=== PATIENT | female | born 1945 | race Caucasian/White ===

== ENCOUNTER 2018-11-25 13:15 | Outpatient (CLI) | payer MEDICARE, OTHER | END 2018-11-25 13:16 | disposition home or self-care (01) | LOC: BICMAMMO 13:15 | PROVIDERS: ATTEND Family Medicine | DX: Z12.31 Encounter for screening mammogram for malignant neoplasm of breast (principal); R92.1 Mammographic calcification found on diagnostic imaging of breast; Z85.89 Personal history of malignant neoplasm of other organs and systems | CPT/HCPCS: 77063; 77067 ==

== ENCOUNTER 2019-06-23 15:36 | Observation (INO) | payer MEDICARE, OTHER ==
[2019-06-23 19:56] VITALS: BMI 40.8
[2019-06-23] MEDS ORDERED: Famotidine 20 MG TAB PO PRN (20:26)
[2019-06-23] MEDS ORDERED: Acetaminophen 325 MG TAB PO PRN (20:26)
[2019-06-23] MEDS ORDERED: Ondansetron ODT 4 MG TAB PO PRN (20:26)
--- NOTE | 2019-06-23 20:38 | PDOC.FPRHP ---
- History of Present Illness Chief Complaint: syncope History of Present Illness: Patient is a 74F with a PMHx of HTN, HLD, DM2, hypothyroidism that presents after 2 episodes of syncope earlier this morning. Patient reports that she was at the [facility] doing her laundry when twice she lost consciousness briefly, and awakened afterward on her buttocks. She denies head trauma. She denies feeling lightheaded or dizzy before each episode. She denies visual disturbances/blurry vision. She denies any cp or palpitations. Denies vomiting or diarrhea. Patient reports that this has happened to her 1-2x before, while she was at home. Per patient she has been evaluated in the past at the ED, diagnosed with dehydration and told to drink more water. She reports that her BG usually runs in the 200s-300s at home, and was recently started on insulin 3-4 weeks ago. She states that she has noticed that she has had polyuria, though denies dysuria or hematuria. ED Course: Received NS at outside ER before transfer - Allergies/Adverse Reactions Allergies Allergy/AdvReac Type Severity Reaction Status Date / Time No Known Drug Allergies Allergy Verified 06/23/19 20:22 - Home Medications Medication Instructions Recorded Confirmed Type Aspirin [Ecotrin Low Strength] 81 mg PO DAILY 06/23/19 06/23/19 History Cholecalciferol (Vitamin D3) 25 mg PO DAILY 06/23/19 06/23/19 History [Vitamin D] Insulin Glargine,Hum.Rec.Anlog 35 unit SC HS 06/23/19 06/23/19 History [Lantus Solostar] Levothyroxine [Synthroid] 112 mcg PO DAILY 06/23/19 06/23/19 History Lisinopril 10 mg PO DAILY 06/23/19 06/23/19 History Sertraline HCl 100 mg PO DAILY 06/23/19 06/23/19 History Simvastatin 40 mg PO QPM 06/23/19 06/23/19 History - History PMHx: HTN, HLD, DM2, hypothyroidism PSHx: hysterectomy FHx: non-contributory Social: denies etoh, smoking, drug use - Review of Systems General: denies: fever/chills, weight/appetite/sleep changes Eyes: denies: eye pain, vision changes ENT: denies: nasal congestion, rhinorrhea Respiratory: reports: cough. denies: shortness of breath Cardiovascular: denies: chest pain, palpitation Gastrointestinal: denies: nausea, vomiting, diarrhea Genitourinary: reports: polyuria. denies: incontinence, dysuria Skin: denies: rashes, lesions Musculoskeletal: denies: pain, tenderness Neurological: reports: syncope. denies: seizure Psychological: reports: other (mood swings). denies: anxiety, depression - Vital signs BP: [157/69] HR: [97] RR: [18] Tmax: [98F] Pox: [97]% on [RA] Wt: [121.7kg] - Physical Exam Constitutional: NAD, awake, alert and oriented HEENT: EOMI, no scleral icterus, grossly normal vision, grossly normal hearing Neck: supple, trachea midline Chest: no-tender to palpation, no lesions Heart: RRR, normal S1/S2, other (systolic murmur appreciated, +1 edema LE bilaterally) Lungs: CTAB, no respiratory distress Abdomen: soft, non-tender Musculoskeletal: normal structure, normal tone Neurological: no focal deficit, normal sensation Skin: no rash/lesions, other (poor turgor, delayed cap refill) Heme/Lymphatic: no unusual bruising or bleeding, no purpura Psychiatric: normal mood and affect, good judgment and insight FMR H&P: Results - Labs Result Diagrams: 06/24/19 04:27 06/24/19 04:26 FMR H&P: A/P - Problem List (1) Syncope and collapse Current Visit: Yes Status: Acute Code(s): R55 - SYNCOPE AND COLLAPSE (2) HTN (hypertension) Current Visit: Yes Status: Chronic Code(s): I10 - ESSENTIAL (PRIMARY) HYPERTENSION (3) DM2 (diabetes mellitus, type 2) Current Visit: Yes Status: Chronic (4) HLD (hyperlipidemia) Current Visit: Yes Status: Chronic Code(s): E78.5 - HYPERLIPIDEMIA, UNSPECIFIED (5) Hypothyroid Current Visit: Yes Status: Chronic Code(s): E03.9 - HYPOTHYROIDISM, UNSPECIFIED (6) Orthostatic hypotension Current Visit: Yes Status: Acute Code(s): I95.1 - ORTHOSTATIC HYPOTENSION (7) Lqfby-aw-nxkpftv kidney injury Current Visit: Yes Status: Acute Code(s): N17.9 - ACUTE KIDNEY FAILURE, UNSPECIFIED; N18.9 - CHRONIC KIDNEY DISEASE, UNSPECIFIED - Plan Patient is a 74F with PMHx of HTN, HLD, DM2, hypothyroidism presenting after syncope x2 today. #Syncope #Orthostatic Hypotension -patient had 2 episodes of syncope today -reports polyuria, BG in 200-300 range -orthostatic vitals confirmed -IVF -continue to monitor vitals -echo, new murmur appreciated today on exam #Acute on chronic kidney injury -creatinine 1.54, GFR 33 likely from dehydration -baseline creatinine ~1.0, GFR ~5 -IVF -continue to monitor #DM #hyperglycemia -recently started on insulin -BG 200-300 range usually at home per patient -ISS -continue home lantus, 30u qam #HLD -continue home meds #HTN -continue home meds Diet: CC DVT: lovenox Fluids: LR @ 160 Dispo: obs for IVF for orthostatic hypotension, f/u echo results Code: Full FMR H&P: Upper Level - Pertinent history 74 yo F here as transfer from [facility] where she presented with complaint of 2 episodes of passing out while doing laundry today. She states that she was standing up and an instant later she was on the ground. She denies prodromal symptoms such as palpitations, dizziness, or tunnel vision. She states that she has been urinating much more recently and has trouble controlling her glucose. In the outside ED her BG was 368. PMHx DM2 CKD3 HLD Hypothyroid MDD Surgical hx Hysterectomy Social Hx Denies tobacco, etoh or drugs - Pertinent findings See nutrition internship note for full ROS, PE, vitals, and labs ROS General denies fever or chills CV Complains of syncope. Denies CP, palpitation, or peripheral edema Resp Denies of SOB or cough GI Denies n/v/d or abdominal pain denies increased frequency or dysuria PE General A&O x4, NAD HEENT NCAT CV RRR, 3/6 systolic murmur R sternal border that does not radiate Resp CTA, no respiratory distress Abd non tender, no distension, normal BS Extremities no edema, equal pedal pulses Neuro No focal deficits, normal strength - Plan Date/Time: 06/23/192033 IJunior DO, have evaluated this patient and agree with findings/plan as outlined by nutrition internship resident. Pertinent changes/additions are listed here. 1.Syncope -Most likely related to dehydration secondary to hyperglycemia. Will bolus 1L and start maintenance IVF -Due to apparent new murmur with syncope, will order echo -Admit to tele obs 2.NELLY on CKD3 -IVF as above -Recheck BMP in am 3.Hyperglycemia in setting of previously controlled DM2 -Restart home lantus -Mod SSI with plan to convert to scheduled. -Most recent A1c was 7.9 in 03/2019 4.Abnormal UA -Given presence of squamous cells, it is likely that WBCs are of no consequence. Will send for culture and treat if indicated. See nutrition internship note for management of other chronic problems PPx SCD Diet Low carb diet Code Full Addendum - Attending - Attending Attestation Date/Time: 06/24/19 6191 I personally evaluated the patient and discussed the management with Dr. Lopez and Herb. I agree with the History, Examination, Assessment and Plan documented above with any addition or exceptions noted below.
[2019-06-23] MEDS ORDERED: Lactated Ringer's 1,000 ML IV SCH ×2 (20:45→22:30)
[2019-06-23] MEDS ORDERED: Dextrose 5% in Water 1,000 ML IV PRN (21:22)
[2019-06-23] MEDS ORDERED: Dextrose 50% Abboject 50 ML SYRINGE SLOW IVP PRN (21:22)
[2019-06-23] MEDS: Lactated Ringer's 1,000 ML IV SCH (21:33)
[2019-06-23] MEDS: HumaLOG 300 UNITS/3 ML VIAL SC PRN (21:45)
[2019-06-24] MEDS ORDERED: Insulin Glargine 30 UNITS in Pre-Filled Syringe 1 EACH SC SCH ×3 (04:45→21:00)
[2019-06-24 04:46] LABS: #Eosinphils 0.4 thou/uL (0.0-0.7); #Monocytes 0.8 thou/uL (0.11-0.59); #Neutrophils 5.7 thou/uL (1.40-6.50); %Basophils 0.5 % (0.0-1.0); %Eosinophils 4.8 % (0.0-10.0); %Lymphocytes 21.9 % (21.0-51.0); %Monocytes 8.5 % (0.0-10.0); %Neutrophils 64.3 % (42.0-75.0); Hemoglobin 11.3 g/dL (12.0-16.0); Mean Corpuscular HGB CONC 33.1 g/dL (32.0-36.0); Mean Corpuscular Hemoglobin 29.5 pg (27.0-31.0); Mean Corpuscular Volume 89.4 fL (78.0-98.0); Mean Platelet Volume 8.8 fL (7.4-10.4); Platelet Count 173 thou/uL (130-400); RBC Distribution Width 13.1 % (11.5-14.5); Red Blood Cell (RBC) Count 3.83 mill/uL (4.20-5.40); White Blood Cell (WBC) Count 8.9 thou/uL (4.8-10.8)
[2019-06-24 05:07] LABS: Anion Gap 8 mmol/L (10-20); BUN (Urea Nitrogen) 19 mg/dL (9.8-20.1); Calc. Creatinine Clearance 98 mL/min (70-130); Calcium 8.5 mg/dL (7.8-10.44); Carbon Dioxide 25 mmol/L (23-31); Chloride 108 mmol/L (98-107); Estimated GFR-MDRD 56; Glucose 203 mg/dL (83-110); Potassium 3.9 mmol/L (3.5-5.1); Sodium 137 mmol/L (136-145)
[2019-06-24] MEDS: Lactated Ringer's 1,000 ML IV SCH ×3 (05:28→17:34)
[2019-06-24] MEDS: Levothyroxine Sodium 112 MCG TAB PO SCH (05:32)
--- NOTE | 2019-06-24 07:16 | PDOC.FM ---
- Subjective Subjective: Patient reports she feel the same as yesterday but denies any lightheadedness upon standing. Also denies any additional syncopal episodes since admission. - Objective MAR Reviewed: Yes Vital Signs & Weight: Vital Signs (12 hours) Temp Pulse Resp BP BP BP Pulse Ox 06/24/19 04:00 97.3 F L 63 17 128/61 93 L 06/24/19 00:18 76 132/59 L 06/23/19 19:45 97.9 F 76 18 110/52 L 95 06/23/19 19:15 97.9 F 76 18 110/52 L 95 Weight Admit Weight 121.744 kg Weight 123 kg I&O: 06/23/19 06/24/19 06/25/19 06:59 06:59 06:59 Intake Total 2620 Output Total 1400 Balance 1220 Result Diagrams: 06/24/19 04:27 06/25/19 05:09 Phys Exam - Physical Examination Constitutional: NAD HEENT: moist MMs Neck: supple, full ROM Respiratory: no wheezing, no rales, no rhonchi, clear to auscultation bilateral Cardiovascular: RRR, no significant murmur Gastrointestinal: soft, non-tender Neurological: non-focal, moves all 4 limbs Psychiatric: normal affect, A&O x 3 Dx/Plan (1) Murmur, cardiac Code(s): R01.1 - CARDIAC MURMUR, UNSPECIFIED Status: Acute (2) Thnfw-gl-mijgmlk kidney injury Code(s): N17.9 - ACUTE KIDNEY FAILURE, UNSPECIFIED; N18.9 - CHRONIC KIDNEY DISEASE, UNSPECIFIED Status: Acute (3) Orthostatic hypotension Code(s): I95.1 - ORTHOSTATIC HYPOTENSION Status: Acute (4) Syncope and collapse Code(s): R55 - SYNCOPE AND COLLAPSE Status: Acute (5) DM2 (diabetes mellitus, type 2) Status: Chronic (6) HLD (hyperlipidemia) Code(s): E78.5 - HYPERLIPIDEMIA, UNSPECIFIED Status: Chronic (7) HTN (hypertension) Code(s): I10 - ESSENTIAL (PRIMARY) HYPERTENSION Status: Chronic (8) Hypothyroid Code(s): E03.9 - HYPOTHYROIDISM, UNSPECIFIED Status: Chronic - Plan Plan: Patient is a 74F with PMHx of HTN, HLD, DM2, hypothyroidism presenting after syncope x2 today. Syncope - Had 2 syncopal episodes on the date of admission. History suspicious for arrhythmia being the underlying cause. Will consult cardiology for opinion for further workup & whether or not this needs to be completed inpatient or outpatient. - Orthostats positive on admission. Patient recently started on insulin for DMII and BG levels have been elevated in the 200s with associated polyuria. Suspect likely 2/2 volume depletion from frequent urination. However, new murmur noted on PE on admission so will also obtain an ECHO to assess for any structural abnormalities that could explain her syncope. - Will wean IVFs & encourage increased PO hydration. - Will continue close monitoring on telemetry. Acute on chronic kidney injury - creatinine 0.97 & GFR 56 s/p IVFs overnight which appears to be in patient's baseline range per chart review - Will wean fluids today & encourage PO hydration IDDMII - BG 200-300 range usually at home per patient & up to 203 this AM - Continue home lantus, 30u qhs with SSI as well & titrate home dose PRN for improved glycemic control. HLD -continue home meds HTN -continue home meds Hypothyroidism -continue home meds Diet: CC DVT: lovenox Fluids: LR @ 160 Dispo: Possible d/c home later today pending cardiology recs. Code: Full Addendum - Attending - Attending Attestation Date/Time: 06/24/19 6000 I personally evaluated the patient and discussed the management with Dr. Rooney I agree with the History, Examination, Assessment and Plan documented above with any addition or exceptions noted below. 74 yo female with DM admitted for syncope and recurrent pre-sycopal episodes. HD#1 Patient reports she feels better from admission. States events occur without warning. Has been increasing in frequency over the past few months. VS, labs reviewed. Agree with PE as documented by resident. 1. Syncope: No aura or warning signs. Concern for cardiac origin. Occurs while ambulating. 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 Rule out HF. Rule out ischemia. Consult cards to discuss outpatient monitoring. Consider stress due to events occurring with ambulation. Positive for orthostasis. Continue IVF hydration. Will transition to PO today. Continue to monitor throughout the day. 2. Uncontrolled DM: Adjust home meds. Add metformin. Patient with financial issues due to poor med coverage. Not able to afford Lantus. 3. HTN: Adjust home meds. Patient not able to tolerate vasodilator due to orthostasis. 4. Orthostasis: Concern for autonomic dysfunction as well. Responded well to fluid hydration. No longer hypovolemic. Concern hypovolemia related to glucosuria and diuretic effect. Adjust home meds as needed. Follow up with cards for outpt eval. Monitor throughout the day. Possible home today if stable. Lesli
[2019-06-24] MEDS: Enoxaparin Sodium 40 MG/0.4 ML SYRINGE SC SCH (08:32)
[2019-06-24] MEDS: Lisinopril 10 MG TAB PO SCH (08:32)
[2019-06-24] MEDS ORDERED: Prevnar 13-Val Conj/PF 0.5 ML SYRINGE IM ONE (09:00)
[2019-06-24] MEDS ORDERED: Insulin Glargine 10 UNITS in Pre-Filled Syringe 1 EACH SC SCH (12:00)
[2019-06-24] MEDS: HumaLOG 300 UNITS/3 ML VIAL SC PRN ×3 (12:33→20:29)
[2019-06-24] MEDS ORDERED: Simvastatin 40 MG TAB PO SCH (21:00)
[2019-06-24] MEDS ORDERED: Non-Formulary Item 1 EACH (Insulin Glargine,Hum.Rec.Anlog [Lantus Solostar] 35 UNIT) SC SCH (21:00)
--- NOTE | 2019-06-25 00:11 | CON ---
DATE OF CONSULTATION: 06/24/2019 REASON FOR CONSULTATION: Syncope. HISTORY OF PRESENT ILLNESS: Riddhi Brooks is a 74-year-old woman. The patient has a history of diabetes. She said recently the blood sugars have been extremely high, usually well over 300. The patient has been placed on insulin, but the blood sugar has been very difficult to control. Yesterday she was at the [facility]. 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 Her friends helped her up to a sitting position. She sat for a few minutes, felt better, but when she stood up, the same thing happened again. She was brought here to the hospital. The patient was given intravenous fluid here. She was also found to have high levels of glucose in the urine. She has been hydrated since she has been here. No chest pain or pressure. The patient states she has had similar episodes in the past, but not as severe. MEDICATIONS: At home; 1. Lisinopril 10 mg each morning. 2. Simvastatin 40 mg a day. 3. Levothyroxine. 4. Aspirin 81 mg a day. 5. Insulin. REVIEW OF SYSTEMS: CONSTITUTIONAL: No significant weight gain or loss. HEENT: Vision, no changes. Hearing, no changes. PULMONARY: No cough or wheezing. GASTROINTESTINAL: No nausea, vomiting, or diarrhea. SKIN: No rashes. NEUROLOGIC: No unilateral weakness or numbness. PSYCHIATRIC: No unusual depression or anxiety. FAMILY HISTORY: Noncontributory. ALLERGIES: NONE KNOWN. PHYSICAL EXAMINATION: GENERAL: This is a very pleasant patient. She is 5 feet 8 inches tall, 271 pounds, BMI is 41, which is severe morbid obesity. VITAL SIGNS: Her blood pressure has been extremely variable, yesterday it was 110/52, just before that 157/69 and 128/61, a lot of variation. I do not see orthostatic blood pressure checks. HEENT: Eyes; sclerae, nonicteric. Mouth, mucous membranes moist. NECK: Supple. No lymphadenopathy. LUNGS: Clear. No wheezing, rales, or rhonchi. CARDIAC: I do not hear a murmur, rub, or gallop, but her cardiac exam is distant. ABDOMEN: Obese, nontender. EXTREMITIES: No clubbing or cyanosis. No edema. Peripheral pulses are present. Difficult to feel due to the obesity. SKIN: Warm and dry. PSYCHIATRIC: Mood and affect normal. NEUROLOGIC: Grossly normal. IMAGING STUDIES: EKG was normal. Echocardiogram, ejection fraction 60% to 65%. Normal echocardiogram with only mild tricuspid insufficiency. ASSESSMENT: Syncopal episode, it is probably orthostatic hypotension. The patient is on blood pressure medicine, has extremely variable blood pressure and has had very high blood sugars, clearly has glucose in the urine, this may be causing some dehydration. She has received large amounts of fluid here, doing better now. PLAN: 1. Recommend orthostatic blood pressure checks. 2. We could do outpatient monitoring for completeness, but I think it seems like this is more likely to be orthostatic hypotension. 3. Further attempts to try to lower the blood sugar. 4. For completeness carotid Dopplers, if she is doing well tomorrow from a cardiac standpoint, could go home with an outpatient monitor. As mentioned, I think it is more likely to be a blood pressure variation and orthostatic hypotension based on the findings of the blood pressures here. Job ID: [id number]
[2019-06-25 06:04] LABS: Cardiac Risk 3.3 (Less than 4.5)
[2019-06-25] MEDS: Levothyroxine Sodium 112 MCG TAB PO SCH (06:10)
--- NOTE | 2019-06-25 07:00 | PDOC.FM ---
- Subjective Subjective: NAEO. Patient has no complaints this AM. Denies any syncopal episodes since admission. Also denies any palpitations, chest pain, or SOB. - Objective Vital Signs & Weight: Vital Signs (12 hours) Temp Pulse Resp BP BP BP Pulse Ox 06/25/19 04:00 98.4 F 62 18 149/66 H 94 L 06/25/19 03:39 94 L 06/24/19 20:17 99.3 F 80 20 110/59 L 153/66 H 96 Weight Admit Weight 121.744 kg Weight 122.742 kg I&O: 06/23/19 06/24/19 06/25/19 06:59 06:59 06:59 Intake Total 2620 2588 Output Total 1400 3250 Balance 1220 -662 Result Diagrams: 06/24/19 04:27 06/25/19 05:09 Phys Exam - Physical Examination Constitutional: NAD HEENT: moist MMs Neck: supple, full ROM Respiratory: no wheezing, no rales, no rhonchi, clear to auscultation bilateral Cardiovascular: RRR, no significant murmur Neurological: non-focal, moves all 4 limbs Psychiatric: normal affect, A&O x 3 Dx/Plan (1) Murmur, cardiac Code(s): R01.1 - CARDIAC MURMUR, UNSPECIFIED Status: Acute (2) Kaxax-dy-qkawplh kidney injury Code(s): N17.9 - ACUTE KIDNEY FAILURE, UNSPECIFIED; N18.9 - CHRONIC KIDNEY DISEASE, UNSPECIFIED Status: Acute (3) Orthostatic hypotension Code(s): I95.1 - ORTHOSTATIC HYPOTENSION Status: Acute (4) Syncope and collapse Code(s): R55 - SYNCOPE AND COLLAPSE Status: Acute (5) DM2 (diabetes mellitus, type 2) Status: Chronic (6) HLD (hyperlipidemia) Code(s): E78.5 - HYPERLIPIDEMIA, UNSPECIFIED Status: Chronic (7) HTN (hypertension) Code(s): I10 - ESSENTIAL (PRIMARY) HYPERTENSION Status: Chronic (8) Hypothyroid Code(s): E03.9 - HYPOTHYROIDISM, UNSPECIFIED Status: Chronic - Plan Plan: Patient is a 74F with PMHx of HTN, HLD, DM2, hypothyroidism presenting after syncope x2 today. Syncope - Had 2 syncopal episodes on the date of admission. History suspicious for arrhythmia being the underlying cause; however, per cards most likely 2/2 orthostasis. - Carotid doppler study done this AM per cards recs. Will likely have patient f/ u as an outpatient for Holter monitoring pending carotid doppler results. - ECHO showed an EF of 60-65% w/ elevated pulmonary artery pressure & mild TR. - Will continue close monitoring on telemetry. Acute on chronic kidney injury, resolved - creatinine 0.97 & GFR 56 s/p IVFs overnight yesterday which appears to be in patient's baseline range per chart review - Repeat BMP pending for this AM to assess status since d/c of IVFs IDDMII - BG 200-300 range usually at home per patient & up to 280 last night - Continue lantus but will increase to 40U HS. Continue mild SSI. HLD -continue home meds HTN -continue home meds Hypothyroidism -continue home meds Diet: CC DVT ppx: lovenox Fluids: SL GI ppx: none Abx: none Dispo: Likely d/c home later today pending results of carotid doppler study. Code: Full Addendum - Attending - Attending Attestation Date/Time: 06/25/19 4486 I personally evaluated the patient and discussed the management with Dr. Rooney I agree with the History, Examination, Assessment and Plan documented above with any addition or exceptions noted below. 74 yo female with DM admitted for syncope and recurrent pre-sycopal episodes. HD#2 Doing better today. No events. Will have home heart monitor placed. VS, labs reviewed. Agree with PE as documented by resident. 1. Syncope: No aura or warning signs. Concern for cardiac origin. Occurs while ambulating. 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 Home monitor. Cards eval patient yesterday. Does not feel this is arrhythmia in nature. Will followup outpatient. 2. Uncontrolled DM: Adjust home meds. Add metformin. Patient with financial issues due to poor med coverage. Not able to afford Lantus. 3. HTN: Adjust home meds. Patient not able to tolerate vasodilator due to orthostasis. 4. Orthostasis: Concern for autonomic dysfunction as well. Responded well to fluid hydration. No longer hypovolemic. Concern hypovolemia related to glucosuria and diuretic effect. Monitor for symptoms closely at home. D/c to home. Follow up next week with PCP. Will need help with insulin coverage. Restart metformin and ACEI. Lesli
[2019-06-25 08:17] VITALS: TEMP 97.9
[2019-06-25 08:46] LABS: Anion Gap 10 mmol/L (10-20); BUN (Urea Nitrogen) 14 mg/dL (9.8-20.1); Calc. Creatinine Clearance 98 mL/min (70-130); Carbon Dioxide 24 mmol/L (23-31); Chloride 106 mmol/L (98-107); Estimated GFR-MDRD 55; Glucose 190 mg/dL (83-110); Potassium 3.8 mmol/L (3.5-5.1); Sodium 136 mmol/L (136-145)
[2019-06-25] MEDS ORDERED: Insulin Glargine 10 UNITS in Pre-Filled Syringe 1 EACH SC SCH (09:00)
[2019-06-25] MEDS: Enoxaparin Sodium 40 MG/0.4 ML SYRINGE SC SCH (09:25)
[2019-06-25] MEDS: Lisinopril 10 MG TAB PO SCH (09:26)
--- NOTE | 2019-06-25 09:55 | ULT ---
ULTRASOUND CAROTID DOPPLER STANDARD: HISTORY: Syncope. COMPARISON: None. FINDINGS: Real-time, keith scale, color Doppler, and spectral analysis of the bilateral extracranial carotid and vertebral arteries was performed. Moderate atherosclerotic plaque of both internal carotid arteries. Antegrade flow of both vertebral arteries. No elevated peak systolic velocities within the internal carotid arteries. IMPRESSION: No hemodynamically significant stenosis. POS: CET
--- NOTE | 2019-06-25 10:05 | PRG ---
DATE OF SERVICE: 06/25/2019 SUBJECTIVE: Ms. Brooks is doing better. She has been hydrated. Despite that, she still has severe orthostatic hypotension. Her blood pressure was 138 sitting and dropped down to 119 standing and that is after being hydrated for several days. Her blood pressure last night was 153 systolic and dropped to 110 systolic when she stood up. ASSESSMENT: 1. Diabetes longstanding. 2. Orthostatic hypotension, probably aggravated by high blood sugars resulting in glucose in the urine causing diuresis. PLAN: 1. Okay with me to go back on lisinopril. 2. Sit down or lay down quickly if she feels lightheaded. 3. For completeness, we will do an outpatient monitor, but I think this is orthostatic hypotension, not an arrhythmia. 4. She is on the statin. I would recommend considering changing from simvastatin to rosuvastatin. Her LDL cholesterol is above the target at 105, it should be 70. Job ID: [id number]
[2019-06-25] MEDS: HumaLOG 300 UNITS/3 ML VIAL SC PRN (12:50)
[2019-06-25 15:47] VITALS: BP 145/72
[2019-06-25] MEDS ORDERED: Rosuvastatin 20 MG TAB PO SCH (21:00)
[2019-06-25] MEDS ORDERED: Insulin Glargine 30 UNITS in Pre-Filled Syringe 1 EACH SC SCH (21:00)
[2019-06-25] MEDS ORDERED: Insulin Glargine 40 UNITS in Pre-Filled Syringe 1 EACH SC SCH (21:00)
== END 2019-06-25 15:26 | disposition home or self-care (01) ==
LOC: 2NO 15:36
PROVIDERS: ADMIT Student in an Organized Health Care Education/Training Program; ATTEND Student in an Organized Health Care Education/Training Program
DX: I95.1 Orthostatic hypotension (principal); I12.9 Hypertensive chronic kidney disease with stage 1 through stage 4 chronic kidney disease, or unspecified chronic kidney disease; E11.65 Type 2 diabetes mellitus with hyperglycemia; E11.22 Type 2 diabetes mellitus with diabetic chronic kidney disease; N18.3 Chronic kidney disease, stage 3 (moderate); N17.9 Acute kidney failure, unspecified; E03.9 Hypothyroidism, unspecified; E78.5 Hyperlipidemia, unspecified; F32.9 Major depressive disorder, single episode, unspecified; E66.01 Morbid (severe) obesity due to excess calories; Z68.41 Body mass index [BMI] 40.0-44.9, adult; Z79.4 Long term (current) use of insulin; Z79.82 Long term (current) use of aspirin; Z79.899 Other long term (current) drug therapy
CPT/HCPCS: 80048 ×2; 80061; 82962 ×3; 83880; 85025; 87086; 90670; 93306; 93880; 97139; G0009; 36415; 36416; 90471; 96360; 96361; 96372; G0378; G0379; J1650; J1815

== ENCOUNTER 2020-09-25 13:48 | Outpatient (CLI) | payer MEDICARE, OTHER ==
--- NOTE | 2020-09-25 14:58 | MMO ---
Bilateral MAMMO Bilat Screen [facility]. CLINICAL HISTORY: Patient is 75 years old and is seen for screening. The patient has no family history of breast cancer. The patient has a history of other cancer. The patient has a history of left Ultrasound Guided Core Biopsy in March, - benign. VIEWS: The views performed were: bilateral craniocaudal with tomosynthesis and bilateral mediolateral oblique with tomosynthesis. FILMS COMPARED: The present examination has been compared to prior imaging studies performed at [facility] on 03/10/2015, 03/17/2015, 02/11/2017 and 11/25/2018. This study has been interpreted with the assistance of computer-aided detection. MAMMOGRAM FINDINGS: There are scattered fibroglandular densities. Benign calcifications are noted bilaterally. There are no suspicious masses, suspicious calcifications, or new areas of architectural distortion. IMPRESSION: THERE IS NO MAMMOGRAPHIC EVIDENCE OF MALIGNANCY. A ROUTINE FOLLOW-UP MAMMOGRAM IN 1 YEAR IS RECOMMENDED. THE RESULTS OF THIS EXAM WERE SENT TO THE PATIENT. ACR BI-RADS Category 2 - Benign finding MAMMOGRAPHY NOTE: 1. A negative mammogram report should not delay a biopsy if a dominant of clinically suspicious mass is present. 2. Approximately 10% to 15% of breast cancers are not detected by mammography. 3. Adenosis and dense breasts may obscure an underlying neoplasm. Reported by: SHARLENE KAMARA MD Electonically Signed: [id number]
== END 2020-09-25 13:49 | disposition home or self-care (01) ==
LOC: BICMAMMO 13:48
PROVIDERS: ATTEND Family Medicine
DX: Z12.31 Encounter for screening mammogram for malignant neoplasm of breast (principal); Z85.89 Personal history of malignant neoplasm of other organs and systems; Z91.89 Other specified personal risk factors, not elsewhere classified
CPT/HCPCS: 77063; 77067

== ENCOUNTER 2022-11-21 12:45 | Outpatient (CLI) | payer MEDICARE, OTHER | END 2022-11-21 12:46 | disposition home or self-care (01) | LOC: RAD 12:45 | PROVIDERS: ATTEND Family Medicine | DX: R09.02 Hypoxemia (principal) | CPT/HCPCS: 71046 ==

== ENCOUNTER 2024-09-29 04:59 | Inpatient (IN) | payer MEDICARE, OTHER ==
[2024-09-29 08:30] VITALS: BMI 36.8
[2024-09-29] MEDS ORDERED: Glucagon 1 MG/ML KIT IM PRN (09:00)
[2024-09-29] MEDS ORDERED: Dextrose 5% in Water 1,000 ML IV PRN (09:00)
[2024-09-29] MEDS ORDERED: Ondansetron ODT 4 MG TAB PO PRN (09:00)
[2024-09-29] MEDS ORDERED: Dextrose 50% Abboject 50 ML SYRINGE SLOW IVP PRN (09:00)
[2024-09-29] MEDS ORDERED: Insulin Lispro 100 UNIT/ML 10 ML VIAL SC PRN (09:13)
[2024-09-29] MEDS: Enoxaparin 40 MG (0.4 mL) SYRINGE SC SCH (11:53)
[2024-09-29] MEDS: Acetaminophen 325 MG TAB PO PRN (11:53)
[2024-09-29] MEDS: Levothyroxine 150 MCG TAB PO SCH (13:35)
[2024-09-29] MEDS: Insulin Lispro 100 UNIT/ML 10 ML VIAL SC PRN (17:50)
[2024-09-29] MEDS: Rosuvastatin 20 MG TAB PO SCH (20:52)
[2024-09-30] MEDS: Levothyroxine Sodium 112 MCG TAB PO SCH (05:27)
[2024-09-30 06:35] LABS: #Basophils Less than 0.03 10x3/uL (0.0-0.2); %Basophils 0.3 % (0.0-1.0); %Eosinophils 7.4 % (0.0-10.0); %Lymphocytes 15.2 % (21.0-51.0); %Monocytes 10.8 % (0.0-10.0); %Neutrophils 65.8 % (42.0-75.0); Hematocrit 33.3 % (36.0-47.0); Hemoglobin 10.6 g/dL (12.0-16.0); Mean Corpuscular HGB CONC 31.8 g/dL (32.0-36.0); Mean Corpuscular Hemoglobin 31.3 pg (27.0-31.0); Mean Corpuscular Volume 98.2 fL (78.0-98.0); Mean Platelet Volume 10.6 fL (7.4-10.4); Platelet Count 99 10x3/uL (130-400); RBC Distribution Width 15.6 % (11.5-14.5); Red Blood Cell (RBC) Count 3.39 mill/uL (4.20-5.40)
[2024-09-30 06:42] LABS: ALT (SGPT) 21 U/L (8-55); AST (SGOT) 23 U/L (5-34); Albumin 2.6 g/dL (3.4-4.8); Alkaline Phosphatase 82 U/L (40-110); Anion Gap 10 mmol/L (10-20); BUN (Urea Nitrogen) 13 mg/dL (9.8-20.1); Calc. Creatinine Clearance 99 mL/min (70-130); Calcium 9.7 mg/dL (7.8-10.44); Carbon Dioxide 34 mmol/L (23-31); Chloride 99 mmol/L (98-107); Estimated GFR 74; Globulin 5.7 g/dL (2.4-3.5); Glucose 145 mg/dL (83-110); Potassium 3.7 mmol/L (3.5-5.1); Protein, Total 8.3 g/dL (5.8-8.1); Sodium 139 mmol/L (136-145)
[2024-09-30] MEDS: Lisinopril 10 MG TAB PO SCH (08:33)
[2024-09-30] MEDS: Furosemide 20 MG TAB PO SCH (08:33)
[2024-09-30] MEDS: Cholecalciferol 1,000 UNITS (25 MCG) TAB PO SCH (08:33)
[2024-09-30] MEDS: Sertraline 100 MG TAB PO SCH (08:33)
[2024-09-30] MEDS: Enoxaparin 40 MG (0.4 mL) SYRINGE SC SCH (08:33)
[2024-09-30] MEDS: Ipratropium/Albuterol 3 ML NEB NEB SCH ×2 (10:27→10:38)
[2024-09-30] MEDS ORDERED: Labetalol HCl 100 MG/20 ML VIAL SLOW IVP PRN (16:17)
[2024-09-30] MEDS: Ipratropium/Albuterol 3 ML NEB NEB PRN (20:35)
[2024-10-01 04:58] LABS: #Basophils Less than 0.03 10x3/uL (0.0-0.2); %Basophils 0.2 % (0.0-1.0); %Eosinophils 7.5 % (0.0-10.0); %Lymphocytes 18.8 % (21.0-51.0); %Monocytes 11.7 % (0.0-10.0); %Neutrophils 61.5 % (42.0-75.0); Hematocrit 32.6 % (36.0-47.0); Hemoglobin 10.1 g/dL (12.0-16.0); Mean Corpuscular Hemoglobin 30.1 pg (27.0-31.0); Mean Corpuscular Volume 97.3 fL (78.0-98.0); Mean Platelet Volume 11.3 fL (7.4-10.4); Platelet Count 98 10x3/uL (130-400); RBC Distribution Width 15.7 % (11.5-14.5); Red Blood Cell (RBC) Count 3.35 mill/uL (4.20-5.40)
[2024-10-01 05:09] LABS: ALT (SGPT) 17 U/L (8-55); AST (SGOT) 20 U/L (5-34); Albumin 2.5 g/dL (3.4-4.8); Alkaline Phosphatase 85 U/L (40-110); Anion Gap 9 mmol/L (10-20); BUN (Urea Nitrogen) 17 mg/dL (9.8-20.1); Bilirubin, Total 1.1 mg/dL (0.2-1.2); Calc. Creatinine Clearance 91 mL/min (70-130); Calcium 10.1 mg/dL (7.8-10.44); Carbon Dioxide 36 mmol/L (23-31); Chloride 95 mmol/L (98-107); Estimated GFR 67; Globulin 5.8 g/dL (2.4-3.5); Glucose 127 mg/dL (83-110); Potassium 3.4 mmol/L (3.5-5.1); Protein, Total 8.3 g/dL (5.8-8.1); Sodium 137 mmol/L (136-145)
[2024-10-01] MEDS ORDERED: FLU (Fluad Triv) TS24-25 (65UP)/MF59C/PF 45 MCG/0.5 ML Syringe IM ONE (09:00)
[2024-10-01] MEDS: Potassium Chloride 20 MEQ TAB PO SCH (09:26)
[2024-10-02 04:30] LABS: #Basophils Less than 0.03 10x3/uL (0.0-0.2); %Basophils 0.4 % (0.0-1.0); %Eosinophils 10.1 % (0.0-10.0); %Lymphocytes 15.6 % (21.0-51.0); %Monocytes 12.6 % (0.0-10.0); %Neutrophils 60.8 % (42.0-75.0); Hematocrit 33.1 % (36.0-47.0); Hemoglobin 10.3 g/dL (12.0-16.0); Mean Corpuscular HGB CONC 31.1 g/dL (32.0-36.0); Mean Corpuscular Hemoglobin 30.6 pg (27.0-31.0); Mean Corpuscular Volume 98.2 fL (78.0-98.0); Mean Platelet Volume 10.9 fL (7.4-10.4); Platelet Count 103 10x3/uL (130-400); RBC Distribution Width 15.4 % (11.5-14.5); Red Blood Cell (RBC) Count 3.37 mill/uL (4.20-5.40)
[2024-10-02 04:38] LABS: ALT (SGPT) 17 U/L (8-55); AST (SGOT) 22 U/L (5-34); Albumin 2.4 g/dL (3.4-4.8); Alkaline Phosphatase 93 U/L (40-110); Anion Gap 13 mmol/L (10-20); BUN (Urea Nitrogen) 19 mg/dL (9.8-20.1); Bilirubin, Total 0.9 mg/dL (0.2-1.2); Calc. Creatinine Clearance 101 mL/min (70-130); Calcium 9.6 mg/dL (7.8-10.44); Carbon Dioxide 33 mmol/L (23-31); Chloride 95 mmol/L (98-107); Estimated GFR 74; Globulin 5.7 g/dL (2.4-3.5); Glucose 159 mg/dL (83-110); Potassium 3.8 mmol/L (3.5-5.1); Protein, Total 8.1 g/dL (5.8-8.1); Sodium 137 mmol/L (136-145)
[2024-10-02] MEDS ORDERED: Ipratropium/Albuterol 3 ML NEB NEB SCH ×2 (10:30→11:00)
[2024-10-02] MEDS ORDERED: Ipratropium/Albuterol 3 ML NEB NEB PRN (10:39)
[2024-10-02 11:16] LABS: Actual Bicarbonate (HCO3v) 33.7 mEq/L (22-28); Analyzer IN Cardio OR; Base Excess 9.4 mEq/L (-2.0 to +3.0); Chloride (VBG) 95 mmol/L (98-106); Hematocrit-VBG 33 % (36.0-47.0); Hemoglobin (Hb) 11.2 g/dL (11.7-16.1); Potassium (VBG) 3.95 mmol/L (3.70-5.30); Sodium 136 mmol/L (133-146); pH (venous) 7.496 (7.32-7.43)
[2024-10-02] MEDS: Ipratropium/Albuterol 3 ML NEB NEB SCH (15:43)
[2024-10-03 04:16] LABS: #Basophils Less than 0.03 10x3/uL (0.0-0.2); %Basophils 0.2 % (0.0-1.0); %Eosinophils 6.4 % (0.0-10.0); %Monocytes 13.8 % (0.0-10.0); %Neutrophils 61.6 % (42.0-75.0); Hematocrit 31.2 % (36.0-47.0); Hemoglobin 9.8 g/dL (12.0-16.0); Mean Corpuscular HGB CONC 31.4 g/dL (32.0-36.0); Mean Corpuscular Hemoglobin 30.6 pg (27.0-31.0); Mean Corpuscular Volume 97.5 fL (78.0-98.0); Mean Platelet Volume 11.5 fL (7.4-10.4); Platelet Count 101 10x3/uL (130-400); RBC Distribution Width 15.8 % (11.5-14.5)
[2024-10-03 04:28] LABS: ALT (SGPT) 18 U/L (8-55); AST (SGOT) 24 U/L (5-34); Albumin 2.4 g/dL (3.4-4.8); Alkaline Phosphatase 97 U/L (40-110); Anion Gap 13 mmol/L (10-20); BUN (Urea Nitrogen) 29 mg/dL (9.8-20.1); Bilirubin, Total 0.8 mg/dL (0.2-1.2); Calc. Creatinine Clearance 77 mL/min (70-130); Calcium 10.3 mg/dL (7.8-10.44); Carbon Dioxide 33 mmol/L (23-31); Chloride 93 mmol/L (98-107); Estimated GFR 53; Globulin 5.5 g/dL (2.4-3.5); Glucose 180 mg/dL (83-110); Potassium 3.7 mmol/L (3.5-5.1); Protein, Total 7.9 g/dL (5.8-8.1); Sodium 135 mmol/L (136-145)
[2024-10-04 04:50] LABS: #Basophils Less than 0.03 10x3/uL (0.0-0.2); %Basophils 0.4 % (0.0-1.0); %Eosinophils 5.6 % (0.0-10.0); %Lymphocytes 21.6 % (21.0-51.0); %Monocytes 11.9 % (0.0-10.0); %Neutrophils 60.1 % (42.0-75.0); Hematocrit 32.1 % (36.0-47.0); Hemoglobin 9.9 g/dL (12.0-16.0); Mean Corpuscular HGB CONC 30.8 g/dL (32.0-36.0); Mean Corpuscular Hemoglobin 30.4 pg (27.0-31.0); Mean Corpuscular Volume 98.5 fL (78.0-98.0); Mean Platelet Volume 11.2 fL (7.4-10.4); Platelet Count 103 10x3/uL (130-400); RBC Distribution Width 15.3 % (11.5-14.5); Red Blood Cell (RBC) Count 3.26 mill/uL (4.20-5.40)
[2024-10-04 05:06] LABS: ALT (SGPT) 22 U/L (8-55); AST (SGOT) 26 U/L (5-34); Albumin 2.4 g/dL (3.4-4.8); Alkaline Phosphatase 98 U/L (40-110); Anion Gap 14 mmol/L (10-20); BUN (Urea Nitrogen) 21 mg/dL (9.8-20.1); Bilirubin, Total 0.7 mg/dL (0.2-1.2); Calc. Creatinine Clearance 106 mL/min (70-130); Calcium 10.3 mg/dL (7.8-10.44); Carbon Dioxide 32 mmol/L (23-31); Chloride 95 mmol/L (98-107); Estimated GFR 78; Globulin 5.7 g/dL (2.4-3.5); Glucose 151 mg/dL (83-110); Potassium 3.8 mmol/L (3.5-5.1); Protein, Total 8.1 g/dL (5.8-8.1); Sodium 137 mmol/L (136-145)
[2024-10-04] MEDS: Polyethylene Glycol 3350 17 GM Packet PO SCH (12:09)
[2024-10-04] MEDS: Bumetanide 1 MG/4 ML VIAL IVP SCH (17:36)
[2024-10-05 05:05] LABS: #Basophils Less than 0.03 10x3/uL (0.0-0.2); %Basophils 0.4 % (0.0-1.0); %Eosinophils 4.7 % (0.0-10.0); %Lymphocytes 21.6 % (21.0-51.0); %Monocytes 11.5 % (0.0-10.0); %Neutrophils 61.4 % (42.0-75.0); Hematocrit 32.9 % (36.0-47.0); Hemoglobin 10.2 g/dL (12.0-16.0); Mean Corpuscular Volume 96.8 fL (78.0-98.0); Mean Platelet Volume 10.8 fL (7.4-10.4); Platelet Count 105 10x3/uL (130-400); RBC Distribution Width 15.4 % (11.5-14.5)
[2024-10-05 05:19] LABS: ALT (SGPT) 28 U/L (8-55); AST (SGOT) 31 U/L (5-34); Albumin 2.5 g/dL (3.4-4.8); Alkaline Phosphatase 100 U/L (40-110); Anion Gap 10 mmol/L (10-20); BUN (Urea Nitrogen) 18 mg/dL (9.8-20.1); Bilirubin, Total 0.7 mg/dL (0.2-1.2); Calc. Creatinine Clearance 98 mL/min (70-130); Calcium 10.3 mg/dL (7.8-10.44); Carbon Dioxide 41 mmol/L (23-31); Chloride 92 mmol/L (98-107); Estimated GFR 72; Glucose 152 mg/dL (83-110); Potassium 3.7 mmol/L (3.5-5.1); Protein, Total 8.5 g/dL (5.8-8.1); Sodium 139 mmol/L (136-145)
[2024-10-05] MEDS: Furosemide 40 MG (4 mL) VIAL SLOW IVP SCH (06:10)
[2024-10-05] MEDS: Polyethylene Glycol 3350 17 GM Packet PO SCH (08:58)
[2024-10-05] MEDS ORDERED: Polyethylene Glycol 3350 17 GM Packet PO SCH (09:00)
[2024-10-05] MEDS: acetaZOLAMIDE Sodium 500 mg Vial IVP SCH (14:47)
[2024-10-05 15:31] VITALS: BP 124/57; TEMP 98.3
[2024-10-05] MEDS: Sterile Water 10 ML ONE (15:32)
== END 2024-10-05 16:25 | DRG 189 ==
LOC: 2NO 06:56
PROVIDERS: ADMIT Family Medicine; ATTEND Family Medicine
DX: J96.01 Acute respiratory failure with hypoxia (principal); E66.2 Morbid (severe) obesity with alveolar hypoventilation; J98.11 Atelectasis; E87.3 Alkalosis; I95.1 Orthostatic hypotension; E78.5 Hyperlipidemia, unspecified; E03.9 Hypothyroidism, unspecified; N18.31 Chronic kidney disease, stage 3a; D64.9 Anemia, unspecified; F32.A Depression, unspecified; E11.22 Type 2 diabetes mellitus with diabetic chronic kidney disease; E11.65 Type 2 diabetes mellitus with hyperglycemia; Z68.37 Body mass index [BMI] 37.0-37.9, adult; Z79.890 Hormone replacement therapy; Z79.4 Long term (current) use of insulin; Z79.899 Other long term (current) drug therapy; Z90.710 Acquired absence of both cervix and uterus
CPT/HCPCS: 36415; 36416; 71045; 80053; 82805; 83880; 85025; 93306; 93970; 94640; J1120; J1650; J1815; J1940; J3490; J7620